=== PATIENT | female | born 1990 | race African-American/Black ===

== ENCOUNTER 2022-12-13 21:05 | Emergency (ER) | payer BC, OTHER ==
[2022-12-13 21:10] VITALS: BP 137/85; PULSE 71; RESP 18; TEMP 97.9; BMI 46.7
[2022-12-13] MEDS ORDERED: LIDOCAINE 5% TOPICAL PATCH TP ONE (22:20)
[2022-12-13] MEDS ORDERED: ACETAMINOPHEN 500 MG TABLET (FP) PO ONE (22:20)
[2022-12-13] MEDS ORDERED: METHOCARBAMOL 500 MG TABLET PO ONE (22:20)
[2022-12-13] MEDS ORDERED: METHOCARBAMOL 500 MG TABLET ONE (22:25)
[2022-12-13] MEDS ORDERED: ACETAMINOPHEN 500 MG TABLET (FP) ONE (22:25)
[2022-12-13] MEDS ORDERED: LIDOCAINE 5% TOPICAL PATCH ONE (22:25)
[2022-12-13 22:38] LABS: BASO % 1.3 % (0-2.0); EOS % 2.8 % (0-4.5); HEMATOCRIT 38.2 % (32.4-45.2); HEMOGLOBIN 12.9 GM/dL (10.7-15.3); LYMPH % 38.8 % (8-40); MCH 30.5 pg (25.7-33.7); MCHC 33.7 g/dl (32.0-36.0); MEAN CELL VOLUME 90.4 fl (80-96); MEAN PLT VOLUME 7.2 fl (7.5-11.1); NEUT % 47.1 % (42.8-82.8); PLATELET COUNT 436 10^3/uL (134-434); RBC 4.22 M/mm3 (3.60-5.2); RDW 13.5 % (11.6-15.6); WHITE BLOOD COUNT 6.6 K/mm3 (4.0-10.0)
[2022-12-13 22:42] LABS: EPI CELLS >36 /uL (0-25.1); HYALINE CASTS 0 /uL (0-3.1); PH,URINE 5.5 (5.0-8.0); URINE APPEARANCE CLOUDY; URINE BACTERIA 891 /uL (0-1359); URINE BILIRUBIN NEGATIVE (NEGATIVE); URINE COLOR YELLOW; URINE GLUCOSE (UA) NEGATIVE (NEGATIVE); URINE KETONE NEGATIVE (NEGATIVE); URINE LEUK ESTERASE TRACE (NEGATIVE); URINE NITRITE NEGATIVE (NEGATIVE); URINE PROTEIN NEGATIVE (NEGATIVE); URINE RBC 97 /uL (0-23.9); URINE UROBILINOGEN 0.2 mg/dL (0.2-1.0); URINE WBC 17 /uL (0-25.8)
[2022-12-13 22:43] LABS: HCG,QUALITATIVE URINE Negative
[2022-12-13 22:57] LABS: POTASSIUM 4.2 mmol/L (3.5-5.1)
[2022-12-13 22:59] LABS: ALBUMIN 3.5 g/dl (3.4-5.0); BLOOD UREA NITROGEN 15.6 mg/dL (7-18); CALCIUM 9.2 mg/dL (8.5-10.1)
[2022-12-13 23:02] LABS: CREATININE 0.9 mg/dL (0.55-1.3)
[2022-12-13 23:04] LABS: TOT PROT 8.2 g/dl (6.4-8.2)
[2022-12-13 23:06] LABS: BILIRUBIN,TOTAL 0.4 mg/dL (0.2-1)
[2022-12-14] MEDS ORDERED: LIDOCAINE PATCH REMOVAL MC ONE (10:00)
== END 2022-12-14 04:48 | disposition home or self-care (01) ==
LOC: JERFT 21:05 → JER 21:05
DX: M54.50 Low back pain, unspecified (principal); R10.9 Unspecified abdominal pain
CPT/HCPCS: 36415; 74176-TC; 80053; 81003; 84703; 85025; 87086; 99284-25